=== PATIENT | male | born 1970 | race Caucasian/White ===

== ENCOUNTER 2020-08-07 09:34 | Emergency (ER) | payer SELFPAY ==
[~2020-08-07] VITALS: Ht 172.7 cm; Wt 70.0 kg
[2020-08-07 09:38] VITALS: BP 120/82
--- NOTE | 2020-08-07 09:40 | NUR ---
PT ASHLEY FROM [facility], EMS WAS CALLED D/T PT LINGERING AROUND THE [employer]. PER EMS PT DRANK METH TODAY AND EXPERIENCING AUDITORY & VISUAL HALLUCINATIONS. PER PT, HE HAS BEEN USING METH FOR THE LAST 2 DAYS. PT DENIES SI/HI AT THIS TIME. PT COOPERATIVE WITH INSTRUCTIONS, PT SHAKING & DIAPHORETIC. PT CHANGED INTO GOWN, BELONGINGS PLACED IN BAG.
[2020-08-07] MEDS ORDERED: LORazepam 2 MG/ML, 1ML ONE (10:51)
[2020-08-07] MEDS ORDERED: LORazepam 2 MG/ML, 1ML IM ONE (11:00)
--- NOTE | 2020-08-07 11:00 | NUR ---
PT MEDICATED PER [facility], PT COOPERATIVE WITH ED STAFF
[2020-08-07 11:29] LABS: BASOPHILS % (AUTO) 0 % (0-1); EOSINOPHILS % (AUTO) 0 % (1-7); LYMPHOCYTES % (AUTO) 10 % (22-44); MEAN CORPUSCULAR HEMOGLOBIN 29.9 pg (27.5-34.5); MEAN CORPUSCULAR HGB CONC 34.4 g/dL (33.2-36.2); MEAN PLATELET VOLUME 8.3 fL (7.4-10.4); MONOCYTES % (AUTO) 7 % (2-9); NEUTROPHILS % (AUTO) 83 % (42-75); PLATELET COUNT 270 x10^3/uL (130-400); RED CELL DISTRIBUTION WIDTH 13.6 % (9.4-14.8)
[2020-08-07 11:38] LABS: ALANINE AMINOTRANSFERASE 66 U/L (12-78); ALBUMIN 4.5 g/dL (3.4-5.0); ANION GAP 8 mmol/L (5-15); CALCIUM 9.3 mg/dL (8.5-10.1); CHLORIDE 115 mmol/L (98-107); CREATININE 0.98 mg/dL (0.7-1.3)
[2020-08-07 11:40] LABS: ALKALINE PHOSPHATASE 65 U/L (45-117); BILIRUBIN,TOTAL 0.5 mg/dL (0.2-1.0); SALICYLATE LEVEL 2.4 mg/dL (2.8-20.0); TOTAL PROTEIN 8.7 g/dL (6.4-8.2)
--- NOTE | 2020-08-07 12:43 | NUR ---
PT NOW SITTING ON GURNEY, NEEDS CONSTANT REDIRECTION. COOPERATIVE WITH ED STAFF
--- NOTE | 2020-08-07 13:18 | NUR ---
BREAK RN: PT WALKED OUT OF AMBULANCE BAY WITH ALL PERSONAL BELONGINGS IN PT BAG, "I'M READY TO GO", REFUSED TO WAIT FOR ERP FOR DC, SALES AND IN HOME DELIVERY SPECIALIST AWARE. Addendum: 08/07/20 at 1333 by ARON BREAK RN: PT WALKED OUT OF AMBULANCE BAY WITH ALL PERSONAL BELONGINGS IN PT BAG, "I'M READY TO GO", REFUSED TO WAIT FOR ERP FOR DC, CHARGE & ERP RN AWARE.
== END 2020-08-07 13:36 | disposition left against medical advice (07) ==
LOC: ED 11:01
DX: F15.129 Other stimulant abuse with intoxication, unspecified (principal); F22 Delusional disorders; F17.200 Nicotine dependence, unspecified, uncomplicated
CPT/HCPCS: 36415; 80053; 80299; 80320; 80329; 85025; 96372; 99283; J2060; G0480